=== PATIENT | female | born 1960 | race Caucasian/White ===

== ENCOUNTER 2017-05-25 17:20 | Inpatient (IN) | payer MEDICAID ==
[~2017-05-25] VITALS: Ht 160 cm; Wt 152.0 kg
[2017-05-25 19:36] LABS: BASOPHIL % 0.4 % (0-2); PLATELET COUNT 236 x10^3mcL (130-400); RED CELL DISTRIBUTION WIDTH 16.3 % (11.5-14.5)
[2017-05-25 19:52] LABS: CALCIUM 8.4 mg/dL (8.5-10.1); CREATININE SERUM 1.4 mg/dL (0.6-1.0); POTASSIUM SERUM 3.5 mmol/L (3.5-5.1)
[2017-05-25 19:57] LABS: ALBUMIN 3.4 g/dL (3.4-5.0); BILIRUBIN TOTAL 0.3 mg/dL (0.20-1.00); TOTAL PROTEIN, SERUM 7.7 g/dL (6.4-8.2)
[2017-05-25 23:46] VITALS: BP 144/69
[2017-05-26 00:35] LABS: CHOLESTEROL/HDL RATIO 3.7; MAGNESIUM 2.1 mg/dL (1.8-2.4); PHOSPHOROUS 3.4 mg/dL (2.5-4.9)
[2017-05-26 00:37] LABS: T3 TOTAL 0.47 ng/mL
[2017-05-26 00:47] LABS: FREE T4 0.22 ng/dL (0.76-1.46)
[2017-05-26 00:56] LABS: FREE THYROXINE INDEX 0.1 ug/dL (1.4-4.5); T4(THYROXINE) 0.4 ug/dL (4.7-13.3)
[2017-05-26 02:40] VITALS: BP 144/69
[2017-05-26 06:15] VITALS: BP 114/65
[2017-05-26 06:38] LABS: CALCIUM 8.9 mg/dL (8.5-10.1); CARBON DIOXIDE 31.9 mmol/L (21-32); CREATININE SERUM 1.6 mg/dL (0.6-1.0); PHOSPHOROUS 3.2 mg/dL (2.5-4.9); POTASSIUM SERUM 3.6 mmol/L (3.5-5.1)
[2017-05-26 06:42] LABS: BASOPHIL % 0.5 % (0-2); PLATELET COUNT 227 x10^3mcL (130-400)
[2017-05-26 06:49] LABS: RED CELL DISTRIBUTION WIDTH 14.9 % (11.5-14.5)
[2017-05-26 09:52] VITALS: BP 113/57
[2017-05-26 10:55] LABS: UA SPECIFIC GRAVITY >=1.030 (1.005-1.035); microscopic required? YES; urine erythrocyte NEGATIVE (NEGATIVE)
[2017-05-26 13:00] VITALS: BP 128/61
[2017-05-26 17:46] VITALS: BP 105/55
[2017-05-26 21:07] VITALS: BP 146/82
[2017-05-27 05:18] VITALS: BP 151/92
[2017-05-27 06:57] LABS: BASOPHIL % 0.6 % (0-2); PLATELET COUNT 237 x10^3mcL (130-400)
[2017-05-27 07:04] LABS: RED CELL DISTRIBUTION WIDTH 15.6 % (11.5-14.5)
[2017-05-27 07:31] LABS: CALCIUM 8.4 mg/dL (8.5-10.1); CARBON DIOXIDE 33.4 mmol/L (21-32); CREATININE SERUM 1.9 mg/dL (0.6-1.0); POTASSIUM SERUM 4.3 mmol/L (3.5-5.1)
[2017-05-27 09:32] VITALS: BP 135/79
[2017-05-27 12:59] VITALS: BP 142/88
[2017-05-27 17:00] VITALS: BP 114/64
[2017-05-27 22:36] VITALS: BP 120/66
[2017-05-28 06:12] LABS: BASOPHIL % 0.4 % (0-2); PLATELET COUNT 221 x10^3mcL (130-400)
[2017-05-28 06:17] LABS: RED CELL DISTRIBUTION WIDTH 16.9 % (11.5-14.5)
[2017-05-28 06:20] LABS: CALCIUM 8.2 mg/dL (8.5-10.1); CARBON DIOXIDE 33.5 mmol/L (21-32); CREATININE SERUM 1.5 mg/dL (0.6-1.0); POTASSIUM SERUM 4.4 mmol/L (3.5-5.1)
[2017-05-28 07:15] VITALS: BP 122/74
[2017-05-28 11:00] VITALS: BP 135/64
[2017-05-28 14:16] VITALS: BP 151/76
[2017-05-28 18:12] VITALS: BP 125/62
[2017-05-28 22:00] VITALS: BP 151/91
[2017-05-29 06:01] VITALS: BP 125/54
[2017-05-29 06:20] LABS: CALCIUM 8.2 mg/dL (8.5-10.1); CARBON DIOXIDE 35.5 mmol/L (21-32); CREATININE SERUM 1.4 mg/dL (0.6-1.0); POTASSIUM SERUM 4.5 mmol/L (3.5-5.1)
[2017-05-29 07:06] LABS: PLATELET COUNT 203 x10^3mcL (130-400)
[2017-05-29 07:07] LABS: RED CELL DISTRIBUTION WIDTH 16.4 % (11.5-14.5)
[2017-05-29 09:04] LABS: BAND NEUTROPHIL 0 % (0-10); BASOPHIL 0 % (0-2); MONOCYTE 11 % (0-7); SEGMENTED NEUTROPHILS 75 % (37-75)
[2017-05-29 09:05] LABS: PLATELET MORPHOLOGY PLATELETS NORMAL; burr cell (echinocyte) 1+; rbc morphology (normal/abnorm) ABNORMAL (NORMAL)
[2017-05-29 09:06] LABS: ovalocyte/elliptocyte 1+
[2017-05-29] MEDS ORDERED: METOPROLOL TART25 M1 PO (09:48)
[2017-05-29] MEDS ORDERED: ZES5 PO (09:49)
[2017-05-29] MEDS ORDERED: SYN75 PO (09:49)
[2017-05-29 09:50] VITALS: BP 121/66
[2017-05-29] MEDS ORDERED: LAC PO (09:50)
[2017-05-29] MEDS ORDERED: METFORMIN850 M1 PO (09:51)
[2017-05-29] MEDS ORDERED: LEVAQUIN750 MG PO ×2 (09:56→09:58)
[2017-05-29] MEDS ORDERED: CLEOCIN HCL300 MG PO (09:57)
[2017-05-29] MEDS ORDERED: VENTOLIN H0.09 MG/A1 INH (10:08)
[2017-05-29] MEDS ORDERED: NAPROSYN500 MG PO (10:08)
[2017-05-29] MEDS ORDERED: GLUCOSE TEST S1 EACH MC (10:45)
[2017-05-29] MEDS ORDERED: GLUCOCOM LANCE1 EAC1 MC (10:45)
[2017-05-29] MEDS ORDERED: ACCU-CHEK AVIV1 EAC1 MC (10:45)
[2017-05-29 12:41] VITALS: Ht 160 cm; Wt 152.0 kg
== END 2017-05-29 15:33 | disposition home or self-care (01) | DRG 137 ==
LOC: ED 17:20 → DU 22:44 → MU 05-29 04:53
PROVIDERS: Emergency Medicine; Family Medicine
DX: J69.0 Pneumonitis due to inhalation of food and vomit (principal); N17.0 Acute kidney failure with tubular necrosis; Z68.43 Body mass index [BMI] 50.0-59.9, adult; D68.69 Other thrombophilia; E11.65 Type 2 diabetes mellitus with hyperglycemia; J11.1 Influenza due to unidentified influenza virus with other respiratory manifestations; G47.33 Obstructive sleep apnea (adult) (pediatric); E03.9 Hypothyroidism, unspecified; J44.9 Chronic obstructive pulmonary disease, unspecified; I10 Essential (primary) hypertension; G89.29 Other chronic pain; M54.5 Low back pain; Z66 Do not resuscitate
CPT/HCPCS: 82962; 83880; 84439; 87804; 90658; 94150; 97110-GP; 97116-GP; 97530-GP; J1885; J1956; J2930; J3490; J7030; J7040; J7620; J7626; Q0092

== ENCOUNTER 2017-12-08 06:55 | Emergency (ER) | payer MEDICAID ==
[~2017-12-08] VITALS: Ht 160 cm; Wt 147.5 kg
[~2017-12-08 06:55] MED LIST: ACCU-CHEK AVIV1 EAC1 MC; CLEOCIN HCL300 MG PO; GLUCOCOM LANCE1 EAC1 MC; GLUCOSE TEST S1 EACH MC; LAC PO; LEVAQUIN750 MG PO; METFORMIN850 M1 PO; METOPROLOL TART25 M1 PO; NAPROSYN500 MG PO; SYN75 PO; VENTOLIN H0.09 MG/A1 INH; ZES5 PO
[2017-12-08 07:01] VITALS: Ht 160 cm; Wt 147.5 kg
[2017-12-08 07:52] LABS: CALCIUM 8.3 mg/dL (8.5-10.1); CARBON DIOXIDE 29.1 mmol/L (21-32); CREATININE SERUM 1.2 mg/dL (0.6-1.0); POTASSIUM SERUM 4.3 mmol/L (3.5-5.1)
[2017-12-08 07:58] LABS: ALBUMIN 3.5 g/dL (3.4-5.0); BASOPHIL % 0.3 % (0-2); BILIRUBIN TOTAL 0.5 mg/dL (0.20-1.00); PLATELET COUNT 257 x10^3mcL (130-400); RED CELL DISTRIBUTION WIDTH 14.3 % (11.5-14.5); TOTAL PROTEIN, SERUM 7.6 g/dL (6.4-8.2)
[2017-12-08 08:10] LABS: URIC ACID 5.6 mg/dL (2.6-6.0)
[2017-12-08 08:35] LABS: UA SPECIFIC GRAVITY 1.025 (1.005-1.035); microscopic required? YES; urine erythrocyte 3+ (NEGATIVE)
[2017-12-08 10:39] VITALS: BP 152/89
== END 2017-12-08 10:39 | disposition home or self-care (01) ==
LOC: ED 06:55
PROVIDERS: Emergency Medicine
DX: N20.0 Calculus of kidney (principal); N83.202 Unspecified ovarian cyst, left side; E66.9 Obesity, unspecified; Z68.43 Body mass index [BMI] 50.0-59.9, adult; I10 Essential (primary) hypertension; E11.9 Type 2 diabetes mellitus without complications; E03.9 Hypothyroidism, unspecified
CPT/HCPCS: J1885; J2405

== ENCOUNTER 2018-01-20 18:58 | Inpatient (IN) | payer MEDICAID ==
[~2018-01-20] VITALS: Ht 160 cm; Wt 147.6 kg
[2018-01-20 19:20] VITALS: Ht 160 cm; Wt 147.6 kg
[2018-01-20] MEDS ORDERED: LOSARTAN POTASS50 M1 PO (20:21)
[2018-01-20] MEDS ORDERED: SYNTHROID0.15 MG PO (20:21)
[2018-01-20] MEDS ORDERED: DITROPAN XL10 MG PO (20:21)
[2018-01-20] MEDS ORDERED: LIPI20 PO (20:22)
[2018-01-20 20:24] LABS: BASOPHIL % 0.5 % (0-2); PLATELET COUNT 284 x10^3mcL (130-400)
[2018-01-20 20:31] LABS: RED CELL DISTRIBUTION WIDTH 14.7 % (11.5-14.5)
[2018-01-20 20:32] LABS: CALCIUM 9.2 mg/dL (8.5-10.1); CARBON DIOXIDE 30.1 mmol/L (21-32); CHLORIDE SERUM 104 mmol/L (98-107); GFR1 > 60 mL/min; GLUCOSE SERUM 108 mg/dL (74-106); POTASSIUM SERUM 4.2 mmol/L (3.5-5.1); SODIUM SERUM 136 mmol/L (136-145)
[2018-01-20 20:39] LABS: ALBUMIN 3.4 g/dL (3.4-5.0); ALKALINE PHOSPHATASE 82 U/L (46-116); ALT/SGPT 26 U/L (14-59); AST/SGOT 21 U/L (15-37); BILIRUBIN TOTAL 0.3 mg/dL (0.20-1.00); TOTAL PROTEIN, SERUM 7.8 g/dL (6.4-8.2)
[2018-01-20 20:40] LABS: CHOLESTEROL 104 mg/dL (<200); HDL CHOLESTEROL 34 mg/dL (40-60)
[2018-01-20 22:15] LABS: UA SPECIFIC GRAVITY 1.025 (1.005-1.035); microscopic required? YES; urine erythrocyte NEGATIVE (NEGATIVE)
[2018-01-20 23:28] VITALS: BP 135/64
[2018-01-21 05:10] VITALS: BP 155/82
[2018-01-21 09:22] VITALS: BP 186/71
[2018-01-21 12:55] VITALS: BP 180/71
[2018-01-21 17:35] VITALS: BP 135/68
[2018-01-21 20:18] VITALS: BP 120/63
[2018-01-22 05:37] VITALS: BP 126/71
[2018-01-22 06:41] LABS: BASOPHIL % 0.1 % (0-2); PLATELET COUNT 289 x10^3mcL (130-400)
[2018-01-22 06:49] LABS: CALCIUM 8.9 mg/dL (8.5-10.1); CARBON DIOXIDE 27.6 mmol/L (21-32); CREATININE SERUM 1.4 mg/dL (0.6-1.0); POTASSIUM SERUM 4.5 mmol/L (3.5-5.1)
[2018-01-22 08:59] VITALS: BP 140/57
[2018-01-22 11:46] VITALS: BP 124/58
[2018-01-22 13:23] VITALS: BP 124/58
[2018-01-22 17:31] VITALS: BP 127/61
[2018-01-22 21:56] VITALS: BP 114/62
[2018-01-23 05:20] VITALS: BP 90/54
[2018-01-23 10:12] VITALS: BP 110/50
[2018-01-23 11:37] VITALS: BP 110/50
== END 2018-01-23 13:50 | disposition home or self-care (01) | DRG 140 ==
LOC: ED 18:58 → DU 22:37
PROVIDERS: Emergency Medicine; Internal Medicine
DX: J44.1 Chronic obstructive pulmonary disease with (acute) exacerbation (principal); J96.01 Acute respiratory failure with hypoxia; J18.9 Pneumonia, unspecified organism; N17.9 Acute kidney failure, unspecified; J44.0 Chronic obstructive pulmonary disease with (acute) lower respiratory infection; E11.9 Type 2 diabetes mellitus without complications; Z68.43 Body mass index [BMI] 50.0-59.9, adult; I10 Essential (primary) hypertension; E03.9 Hypothyroidism, unspecified; Z79.84 Long term (current) use of oral hypoglycemic drugs; Z87.891 Personal history of nicotine dependence
CPT/HCPCS: 82962; J1940; J1956; J2920; J2930; J3490; J7040; J7050; J7613; J7620; Q0092

== ENCOUNTER 2018-03-30 13:40 | Inpatient (IN) | payer MEDICAID ==
[~2018-03-30] VITALS: Ht 160 cm; Wt 146.1 kg
[~2018-03-30 13:40] MED LIST changes: +DITROPAN XL10 MG PO; +LIPI20 PO; +LOSARTAN POTASS50 M1 PO; +SYNTHROID0.15 MG PO
[2018-03-30 13:44] VITALS: Ht 160 cm; Wt 146.1 kg
[2018-03-30 15:04] LABS: BASOPHIL % 0.3 % (0-2); PLATELET COUNT 307 x10^3mcL (130-400)
[2018-03-30 15:05] LABS: RED CELL DISTRIBUTION WIDTH 14.8 % (11.5-14.5)
[2018-03-30 15:07] LABS: CALCIUM 9.1 mg/dL (8.5-10.1); CARBON DIOXIDE 30.6 mmol/L (21-32); CHLORIDE SERUM 104 mmol/L (98-107); GFR1 > 60 mL/min; GLUCOSE SERUM 112 mg/dL (74-106); POTASSIUM SERUM 4.1 mmol/L (3.5-5.1); SODIUM SERUM 138 mmol/L (136-145)
[2018-03-30 15:12] LABS: ALKALINE PHOSPHATASE 81 U/L (46-116); ALT/SGPT 23 U/L (14-59); AST/SGOT 17 U/L (15-37); BILIRUBIN TOTAL 0.3 mg/dL (0.20-1.00); TOTAL PROTEIN, SERUM 7.1 g/dL (6.4-8.2)
[2018-03-30 15:13] LABS: ALBUMIN 3.1 g/dL (3.4-5.0)
[2018-03-30 16:24] LABS: UA SPECIFIC GRAVITY >=1.030 (1.005-1.035); microscopic required? YES; urine erythrocyte TRACE (NEGATIVE)
[2018-03-30 17:08] VITALS: BP 146/84
[2018-03-30 17:14] LABS: CHOLESTEROL/HDL RATIO 2.8; MAGNESIUM 1.8 mg/dL (1.8-2.4)
[2018-03-30 18:02] VITALS: BP 151/88
[2018-03-30 20:29] VITALS: BP 122/49
[2018-03-31 05:36] VITALS: BP 131/67
[2018-03-31 06:27] LABS: BASOPHIL % 0.4 % (0-2); PLATELET COUNT 269 x10^3mcL (130-400)
[2018-03-31 06:45] LABS: CARBON DIOXIDE 30.9 mmol/L (21-32); CREATININE SERUM 1.2 mg/dL (0.6-1.0); POTASSIUM SERUM 4.3 mmol/L (3.5-5.1)
[2018-03-31 09:33] VITALS: BP 129/57
[2018-03-31 13:23] VITALS: BP 144/78
[2018-03-31 17:16] VITALS: BP 132/77
[2018-03-31 21:26] VITALS: BP 156/84
[2018-04-01 05:53] VITALS: BP 142/85
[2018-04-01 06:27] LABS: CALCIUM 8.7 mg/dL (8.5-10.1); CARBON DIOXIDE 31.7 mmol/L (21-32); CHLORIDE SERUM 107 mmol/L (98-107); GFR1 > 60 mL/min; GLUCOSE SERUM 120 mg/dL (74-106); POTASSIUM SERUM 4.3 mmol/L (3.5-5.1); SODIUM SERUM 144 mmol/L (136-145)
[2018-04-01 06:28] LABS: BASOPHIL % 0.4 % (0-2); PLATELET COUNT 257 x10^3mcL (130-400)
[2018-04-01 06:38] LABS: RED CELL DISTRIBUTION WIDTH 14.9 % (11.5-14.5)
[2018-04-01 09:48] VITALS: BP 148/72
[2018-04-01 09:58] VITALS: BP 148/72
== END 2018-04-01 10:48 | disposition home or self-care (01) | DRG 198 ==
LOC: ED 13:40 → DU 16:12
PROVIDERS: Emergency Medicine; Internal Medicine
DX: I24.9 Acute ischemic heart disease, unspecified (principal); J44.1 Chronic obstructive pulmonary disease with (acute) exacerbation; Z99.81 Dependence on supplemental oxygen; Z68.43 Body mass index [BMI] 50.0-59.9, adult; I25.10 Atherosclerotic heart disease of native coronary artery without angina pectoris; N39.0 Urinary tract infection, site not specified; E11.9 Type 2 diabetes mellitus without complications; R09.1 Pleurisy; E03.9 Hypothyroidism, unspecified; I10 Essential (primary) hypertension; E78.5 Hyperlipidemia, unspecified; Z87.891 Personal history of nicotine dependence; Z79.84 Long term (current) use of oral hypoglycemic drugs
CPT/HCPCS: 82962; 83880; 90658; J1644; J1956; J2270; J3535; J7040; J7620; Q0092; Q9967

== ENCOUNTER 2018-08-06 19:04 | Emergency (ER) | payer MEDICAID ==
[~2018-08-06] VITALS: Ht 160 cm; Wt 151.5 kg
[2018-08-06 19:16] VITALS: Ht 160 cm; Wt 151.5 kg
[2018-08-06 20:51] VITALS: BP 136/69
== END 2018-08-06 20:51 | disposition home or self-care (01) ==
LOC: ED 19:04
DX: H66.92 Otitis media, unspecified, left ear (principal); J02.9 Acute pharyngitis, unspecified; E66.01 Morbid (severe) obesity due to excess calories; E03.9 Hypothyroidism, unspecified; I10 Essential (primary) hypertension; Z90.710 Acquired absence of both cervix and uterus
CPT/HCPCS: J0696; Q0162